=== PATIENT | female | born 1965 | race Caucasian/White ===

== ENCOUNTER → 2020-10-17 00:10 | Outpatient (CLI) | payer BC, SELFPAY ==
[2020-10-17 19:16] LABS: SARS-CoV-2 RNA PCR Negative
== END ==
PROVIDERS: Visit Provider Orthopaedic Surgery
DX: Z01.812 Encounter for preprocedural laboratory examination (principal); Z20.822 Contact with and (suspected) exposure to COVID-19
CPT/HCPCS: C9803; U0003; U0005

== ENCOUNTER 2020-10-18 14:39 | Outpatient (CLI) | payer BC, SELFPAY ==
--- NOTE | 2020-10-18 15:00 | ECG_ITS ---
Measurements Intervals [place] Rate: 78 P: 70 ME: 142 QRS: 52 QRSD: 98 T: 42 QT: 377 QTc: 430 Interpretive Statements SINUS RHYTHM POSSIBLE LEFT ATRIAL ENLARGEMENT BORDERLINE ECG Electronically Signed On 10-18-2020 15:59:52 CDT by Jhonny Mccray D.O.
== END 2020-10-18 14:40 | disposition home or self-care (01) ==
LOC: ANHSURGERY 14:46
PROVIDERS: PCP Family Medicine; Visit Provider Orthopaedic Surgery
DX: Z01.818 Encounter for other preprocedural examination (principal); I10 Essential (primary) hypertension
CPT/HCPCS: 93005

== ENCOUNTER 2020-10-20 00:53 | Day surgery (SDC) | payer BC, SELFPAY ==
[2020-10-17 14:53] VITALS: BMI 32.0
--- NOTE | 2020-10-19 09:52 | WPDANESEPPF ---
Anes - Initial Pre Proc Eval Procedure: Operation Date: 10/20/20 07:30 Proposed Procedures p Right Shoulder Arthroscopic Rotator Cuff Repair, Subacromial Decompression, Biceps Tenotomy - Kenton Deglado MD Date/Time: 10/19/20 09:52 Surgeon: Kenton Delgado MD Pre Op Diagnosis: complete right rotator cuff tear Patient Data Age: 55 Gender: F Height: 1.6 m Weight: 82 kg Allergies Allergy/AdvReac Type Severity Reaction Status Date / Time codeine Allergy Unknown Insomnia Verified 10/20/20 06:49 Home Medications Medication Instructions Recorded Confirmed Type acetaminophen 325 mg capsule 325 mg PO Q6H PRN 03/02/20 10/17/20 History amlodipine 5 mg tablet 5 mg PO QAM 03/02/20 10/17/20 History cyclobenzaprine 10 mg tablet 20 mg PO HS PRN 03/02/20 10/17/20 History ibuprofen 800 mg tablet 800 mg PO DAILY 03/02/20 10/17/20 History zolpidem 5 mg tablet 5 mg PO HS PRN 03/02/20 10/17/20 History atorvastatin 10 mg PO BID 10/17/20 10/17/20 History famotidine 40 mg PO BID 10/17/20 10/17/20 History pramipexole 0.25 mg PO HS PRN 10/17/20 10/17/20 History Patient hx anesthesia problems: none Family hx anesthesia problems: none [facility] Past Medical History Medical History (Updated 10/19/20 @ 09:52 by Nigel Cardona DO) GERD (gastroesophageal reflux disease) Hyperlipidemia Hypertension Severe dysplasia of cervix (~1994) Partial Removal of Cervix Surgical History Surgical History History of (~1985) History of hysterectomy (~2000) History of tubal ligation (~1999) Social History Social History Smoking packs per day: 1.5 Smoking cigarettes per day: 30.0 Years smoked: 47 Smoking pack-years: 70.50 Smoking status: Current every day smoker Tobacco type: cigarettes Additional smoking assessment comments: TAPERING DOWN/TRYING TO STOP Alcohol intake: former Alcohol use details: HEAVIER DRINKER YEARS AGO Substance use: current Living arrangements: with friend(s) Additional living arrangements comments: WITH FRIEND Spiritual care concerns: No Anes - Eval Final PreProcedure Day of Procedure 10/19/20 09:52 Patient weight: obese Heart: regular rate and rhythm Lungs: clear to auscultation and normal air movement Airway: Mallampati scale class II Neurological: alert and oriented Last oral intake: >/= 8 hours ASA classification: III Emergent: no Anesthetic plan: proceed Anesthesia type and monitoring: general ETT and standard monitoring Informed Consent: The patient's anesthetic plan and its attendant risks and benefits were discussed with the patient/family/POA. Questions were solicited and answers provided to the satisfaction of the patient/family/POA.
--- NOTE | 2020-10-19 09:52 | WPDANESPNB ---
Anes - Peripheral Nerve Block Date/Time: 10/19/20 09:52 I have discussed with the patient/family/POA the placement of a peripheral nerve block for post-operative pain management, including associated risks, benefits, complications, and side effects. Alternative methods of post-operative analgesia were detailed. Questions were solicited and answers provided to the satisfaction of the patient/family/POA. Time-Out: A pre-procedural Time-Out was completed immediately before starting the procedure and confirmed: Patient Identification, Site, Procedure, Patient Position and the Availability of Requisite Equipment. Clinical Indications: Acute post-operative pain management requested by the operative surgeon. Nerve Block Insertion Note Anes-nerve block: interscalene right Patient position: supine Skin prep: chlorhexidine Needle: 22 gauge, stimulating, insulated echogenic needle. Needle length: 50 mm Technique: ultrasound Injectate: bupivacaine 0.5% with epi 5 mcg/ml (30cc- no epi) Observations: tolerated well Complications: none Procedure start time:: 715 Procedure end time:: 719
[2020-10-20] VITALS (8 sets, daily range): BP systolic 107–129; BP diastolic 47–89; PULSE 73–85; RESP 11–19; TEMP 36–36.1; O2SAT 96–100
[2020-10-20] MEDS: LACTATED RINGERS 1,000 ML 30 ML IV CONT ×2 (06:18→11:38)
[2020-10-20] MEDS: ACETAMINOPHEN 500 MG TABLET 1000 MG PO (06:21)
[2020-10-20] MEDS: KETOROLAC 15 MG/ML VIAL (*BKC) IV PUSH (06:22)
--- NOTE | 2020-10-20 07:05 | WPDHPUPDATE1 ---
History and Physical Update Update Date/Time: 10/20/20 07:05 History and Physical has been reviewed, including an updated exam of the patient. There are NO changes in the patient's condition. Risks, benefits, and alternatives have been discussed and questions answered. Patient agrees to proceed with procedure.
[2020-10-20] MEDS: ceFAZolin 2 GM/D5W 50 ML 2 GM/50 ML BAG IVPB (07:30)
--- NOTE | 2020-10-20 12:07 | SUR.PHASEI ---
O2 removed at 1200.
--- NOTE | 2020-10-20 12:18 | SUR.PHASEI ---
Patient didn't want RN to give update to daughter at this time.
--- NOTE | 2020-10-20 16:36 | PM.PROC ---
Procedure Note - Detailed Date of procedure: 10/20/20 Pre-op diagnosis: complete right rotator cuff tear Post-op diagnosis: other ( 1. Massive rotator cuff tear right shoulder. 2. Biceps tendon tear 3. Subacromial impingement with os acromiale) Procedure performed: 1. Arthroscopic rotator cuff repair, massive tear including subscapularis. 2. Arthroscopic biceps tenodesis. 2. Arthroscopic subacromial decompression. Description of procedure: Massive tear of the supraspinatus with significant retraction. The tear extended to the infraspinatus and the upper subscapularis. The articular cartilage was healthy. Subscapularis was repaired with a bone tunnel and 3 sutures. The biceps was subsequently tenodesis within the sutures from this anterior tunnel. Supraspinatus and infraspinatus tears were repaired with 3 additional tunnels all with 3 simple sutures. Additionally 2 margin convergence sutures were used at the anteriorly. The repair was slightly medialized to minimize tension on the repair. Tissue was reasonable but somewhat thin. Given the tissue quality and her smoking status, it was elected to augment the repair biologically with the collagen implant. Several MAYA suture anchors were placed into the tendon medially and 3 peek bone anchors were placed laterally. Anesthesia: GETA and regional Surgeon: Kenton Delgado MD Wood Web Weaving Machine Operator: Summer Carbajal PA-C Estimated blood loss (mL): 20 Pathology: none sent Complications: None Condition: stable Disposition: PACU Findings: Operative detail: Preoperative antibiotics were given. An interscalene block was administered in the preoperative area. The patient was bought brought to the operating room. A general anesthetic was administered. The patient was carefully positioned in the lateral decubitus position. The head and neck were carefully positioned. The non operative extremity was also carefully positioned. The shoulder was prepped and draped in the usual sterile fashion. Examination was performed. Standard posterior and anterior arthroscopic portals were established. Inflow achieved with the arthroscopic pump using saline and epinephrine. The glenohumeral joint was carefully inspected. Biceps tendon was released for later tenodesis. The tear was easily identified. The subscapularis was significantly torn in the upper 3rd. Attention was turned to the subacromial space. A complete bursectomy was performed. The rotator cuff and footprint were lightly debrided. A modest acromioplasty was performed. The tear configuration was carefully assessed. At this point, 1 tunnel was created at the subscapularis. The ArthroTunneler technique was utilized. Three sutures were passed through the tunnel. All sutures were then passed through the cuff tissue, using the antegrade passer. The sutures were tied arthroscopically, over the intertuberculur groove and including the biceps tendon. Attention was then turned to the superior and posterior cuff. Three additional tunnels were created. Antegrade passage of the sutures was performed. Prior to the sutures being passed 2 margin convergence sutures were placed. This rendered the tear somewhat smaller and less retracted. Sutures were all tied arthroscopically. Due to the modestly poor tissue quality and history of smoking, the collagen tissue augmentation was performed. The 20 x 25 mm graft was positioned over the central aspect of the supraspinatus tear. Fixation was accomplished with the MAYA anchors medially and peek anchors laterally. The arthroscopic instruments were removed. The wounds were closed with 3-0 Monocryl subcuticular suture and steri strips. There were no complications. A sling was applied and the patient brought to the recovery room.
== END 2020-10-20 13:25 | disposition home or self-care (01) ==
PROVIDERS: PCP Family Medicine; Visit Provider Orthopaedic Surgery
PROC: (CPT 29805; principal; 2020-10-20 07:30)
DX: M75.121 Complete rotator cuff tear or rupture of right shoulder, not specified as traumatic (principal); M75.81 Other shoulder lesions, right shoulder; M75.41 Impingement syndrome of right shoulder; G89.18 Other acute postprocedural pain; I10 Essential (primary) hypertension; E78.5 Hyperlipidemia, unspecified; K21.9 Gastro-esophageal reflux disease without esophagitis; F17.210 Nicotine dependence, cigarettes, uncomplicated; E66.9 Obesity, unspecified; Z68.30 Body mass index [BMI] 30.0-30.9, adult
CPT/HCPCS: 29827; 29828; 29826; 64415; A4565; A9270; J0330; J0690; J1100; J1170; J1885; J2250; J2405; J2704; J2710; J3010; J7120